=== PATIENT | female | born 1980 | race Caucasian/White ===

== ENCOUNTER 2017-03-16 10:48 | Emergency (ER) | payer MEDICAID ==
[~2017-03-16] VITALS: Ht 154.9 cm; Wt 63.7 kg
[2017-03-16 14:08] VITALS: BP 110/65
== END 2017-03-16 14:08 | disposition home or self-care (01) ==
LOC: ED 10:48
DX: N75.1 Abscess of Bartholin's gland (principal)
CPT/HCPCS: J2001; J3010; J7620

== ENCOUNTER 2018-07-12 08:27 | Emergency (ER) | payer MEDICAID ==
[~2018-07-12] VITALS: Ht 157.5 cm; Wt 63.0 kg
[2018-07-12 08:36] VITALS: Ht 157.5 cm; Wt 63.0 kg
[2018-07-12 11:36] VITALS: BP 116/70
== END 2018-07-12 11:36 | disposition home or self-care (01) ==
LOC: ED 08:27
DX: N75.1 Abscess of Bartholin's gland (principal)
CPT/HCPCS: J2001; J3010

== ENCOUNTER 2018-07-16 16:51 | Emergency (ER) | payer MEDICAID ==
[~2018-07-16] VITALS: Ht 157.5 cm; Wt 63.0 kg
[2018-07-16 16:53] VITALS: BP 125/70; Ht 157.5 cm; Wt 63.0 kg
== END 2018-07-16 18:24 | disposition home or self-care (01) ==
LOC: ED 16:51
DX: Z46.82 Encounter for fitting and adjustment of non-vascular catheter (principal); N75.0 Cyst of Bartholin's gland

== ENCOUNTER 2019-08-09 16:26 | Emergency (ER) | payer MEDICAID ==
[~2019-08-09] VITALS: Ht 160 cm; Wt 64.9 kg
[2019-08-09 16:43] VITALS: Ht 160 cm; Wt 64.9 kg
[2019-08-09 19:08] VITALS: BP 110/74
== END 2019-08-09 19:08 | disposition home or self-care (01) ==
LOC: ED 16:26
DX: N75.0 Cyst of Bartholin's gland (principal)
CPT/HCPCS: J2001